=== PATIENT | male | born 1990 ===

== ENCOUNTER 2020-03-25 12:34 | Emergency (ER) | payer SELFPAY ==
[~2020-03-25] VITALS: Ht 190.5 cm; Wt 87.5 kg
--- NOTE | 2020-03-25 13:10 | NUR ---
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
[2020-03-25 13:54] LABS: BASOPHILS % (AUTO) 1 % (0-1); EOSINOPHILS % (AUTO) 1 % (1-7); LYMPHOCYTES % (AUTO) 21 % (22-44); MEAN CORPUSCULAR HEMOGLOBIN 31.6 pg (27.5-34.5); MEAN CORPUSCULAR HGB CONC 35.1 g/dL (33.2-36.2); MEAN PLATELET VOLUME 8.1 fL (7.4-10.4); MONOCYTES % (AUTO) 8 % (2-9); NEUTROPHILS % (AUTO) 69 % (42-75); PLATELET COUNT 255 x10^3/uL (130-400); RED BLOOD COUNT 5.22 x10^6/uL (4.38-5.82); RED CELL DISTRIBUTION WIDTH 12.9 % (9.4-14.8)
[2020-03-25 13:57] LABS: MD NO
[2020-03-25 14:05] LABS: ALBUMIN 3.9 g/dL (3.4-5.0); ANION GAP 3 mmol/L (5-15); CALCIUM 8.8 mg/dL (8.5-10.1); CHLORIDE 108 mmol/L (98-107); CREATININE 1.31 mg/dL (0.7-1.3)
[2020-03-25 14:09] LABS: TROPONIN I < 0.015 ng/mL (0.000-0.045)
[2020-03-25 14:46] VITALS: BP 123/63
--- NOTE | 2020-03-25 14:46 | NUR ---
BREAK RN: PT RESTING IN ROOM. NO ACUTE DISTRESS NOTED. VS STABLE. CALL LIGHT IN PLACE. WILL CONTINUE TO MONITOR.
--- NOTE | 2020-03-25 15:25 | NUR ---
REPORT GIVEN TO YAKELIN SHORT
== END 2020-03-25 17:03 | disposition home or self-care (01) ==
LOC: ED 12:45
DX: U07.1 COVID-19 (principal); J06.9 Acute upper respiratory infection, unspecified; R07.89 Other chest pain; M79.10 Myalgia, unspecified site; J45.909 Unspecified asthma, uncomplicated
CPT/HCPCS: 36415; 71045; 80048; 82040; 84484; 85025; 85379; 93005; 99285